=== PATIENT | male | born 1985 | race Two or more races ===

== ENCOUNTER 2020-07-05 06:48 | Emergency (ER) | payer OTHER ==
[~2020-07-05] VITALS: Ht 177.8 cm; Wt 64.7 kg
[2020-07-05 06:52] VITALS: BP 136/88
== END 2020-07-05 07:19 | disposition home or self-care (01) ==
LOC: ED 07:13
DX: K02.9 Dental caries, unspecified (principal)
CPT/HCPCS: 99283